=== PATIENT | male | born 1970 | race Caucasian/White ===

== ENCOUNTER → 2019-12-21 | Outpatient (CLI) | payer MEDICARE, MEDICAID, OTHER ==
[~2019-12-21] MED LIST: ACET500C4 PO; AMLO5TAB2 PO; ASPI-892; ATEN50TA PO; FURO80TA3; FURO80TA3 PO; HYDR1TAB PO; LOSA1TAB15; LRT10T PO; METH4TAB PO; POTA20TA15 PO
== END ==
LOC: CARD 10:08
PROVIDERS: ATTEND Internal Medicine Cardiovascular Disease
DX: R07.89 Other chest pain (principal); G47.33 Obstructive sleep apnea (adult) (pediatric); E66.9 Obesity, unspecified; E11.9 Type 2 diabetes mellitus without complications; M79.89 Other specified soft tissue disorders

== ENCOUNTER → 2019-12-29 | Outpatient (CLI) | payer MEDICARE, MEDICAID ==
[~2019-12-29] VITALS: Ht 187 cm; Wt 191.0 kg
[~2019-12-29] MED LIST changes: +CATHETER FLUSH 10 ML SYR IV PRN; +REGADENOSON 0.4 MG/5 ML SYR (LEXISCAN) IV ONE
--- NOTE | 2019-12-29 18:17 | STRESS TEST ---
DATE OF SERVICE: 12/29/2019 RESTING AND POST REGADENOSON TECHNETIUM-99M TETROFOSMIN SPECT CT IMAGING ORDERING PHYSICIAN: Dr. Goel. PRIMARY PHYSICIAN: Krystina Govea APRN. CLINICAL DIAGNOSIS: Chest discomfort, type 2 diabetes. Baseline images were carried out after injection of 10.63 mCi of technetium-99m Tetrofosmin. This was followed by 0.4 mg regadenoson and 30.8 mCi of technetium-99m Tetrofosmin for stress imaging. The electrocardiogram showed sinus rhythm at baseline. It did not change significantly with the regadenoson infusion. The patient tolerated the procedure well. Review of images at rest and following stress does not indicate any significant perfusion defects consistent with significant myocardial ischemia or infarction. Gated images show normal global left ventricular systolic function with normal regional wall motion. Left ventricular ejection fraction is calculated to be 70%. Left ventricular end diastolic volume is 69 mL. TID is absent (0.92). CONCLUSIONS: 1. No evidence of any significant myocardial ischemia or infarction on this study. 2. Normal regional wall motion. 3. Normal global left ventricular systolic function with a calculated ejection fraction of 70%. Job ID: [id number] DocumentID: [id number] Dictated Date: 12/29/2019 16:00:36 Siphoner Date: 12/29/2019 18:16:30 Dictated By: FANG GOEL MD, MA, FACP, FACC,
== END ==
LOC: CARD 11:05
PROVIDERS: ATTEND Internal Medicine Cardiovascular Disease
DX: R00.2 Palpitations (principal); E66.01 Morbid (severe) obesity due to excess calories; E11.9 Type 2 diabetes mellitus without complications
CPT/HCPCS: 78452; 93017

== ENCOUNTER 2023-05-15 05:49 | Outpatient (CLI) | payer MEDICARE, MEDICAID ==
[~2023-05-15] VITALS: Ht 185.4 cm; Wt 187.3 kg
[~2023-05-15 05:49] MED LIST changes: -CATHETER FLUSH 10 ML SYR IV PRN; -REGADENOSON 0.4 MG/5 ML SYR (LEXISCAN) IV ONE
[2023-05-15] MEDS ORDERED: PANT40TA52 PO (09:42)
[2023-05-15] MEDS ORDERED: EPLE25TA4 PO (09:42)
[2023-05-15] MEDS ORDERED: LISI40TA9 PO (09:42)
[2023-05-15] MEDS ORDERED: ALLO300T2 PO (09:42)
[2023-05-15] MEDS ORDERED: METO50TA7 PO (09:42)
[2023-05-15] MEDS ORDERED: SEMA1PEN3 SQ (09:42)
== END 2023-05-15 09:57 | disposition home or self-care (01) ==
LOC: PREOP 05:49
PROVIDERS: ATTEND Surgery
DX: Z01.818 Encounter for other preprocedural examination (principal)

== ENCOUNTER 2023-05-20 07:33 | Day surgery (SDC) | payer MEDICARE, MEDICAID ==
[~2023-05-20] VITALS: Ht 185 cm; Wt 187.3 kg
[~2023-05-20 07:33] MED LIST changes: +ALLO300T2 PO; +EPLE25TA4 PO; +LISI40TA9 PO; +METO50TA7 PO; +PANT40TA52 PO; +SEMA1PEN3 SQ
[2023-05-20] MEDS ORDERED: LACTATED RINGERS 1,000 ML IV STA (07:50)
[2023-05-20 08:12] VITALS: BP 116/69
--- NOTE | 2023-05-20 08:28 | Progress Note-Pre Operative ---
Pre-Operative Progress Note Date of Available H&P: May 07, 2023 Date H&P Reviewed: May 20, 2023 Time H&P Reviewed: 08:24 History & Physical: H&P Reviewed, Patient Examed, No changes noted Pre-Operative Diagnosis: Hx of polyps, diarrhea RONIT BEE DO May 20, 2023 08:28
--- NOTE | 2023-05-20 09:21 | Anesthesia-General Post-Op ---
MAC Patient Condition Mental Status/LOC: Same as Preop Cardiovascular: Satisfactory Nausea/Vomiting: Absent Respiratory: Satisfactory Pain: Controlled Complications: Absent Post Op Complications Complications None Follow Up Care/Instructions Patient Instructions None needed. Anesthesiology Discharge Order Discharge Order Patient is doing well, no complaints, stable vital signs, no apparent adverse anesthesia problems. No complications reported per nursing. OLYA HACKETT CRNA May 20, 2023 09:21
[2023-05-20 09:25] VITALS: BP 129/79
--- NOTE | 2023-05-20 09:25 | Progress Note-Post Operative ---
Post-Operative Progess Note Surgeon (s)/Outdoor Studies Professor (s) Surgeon RONIT BEE DO Outdoor Studies Professor: none Pre-Operative Diagnosis Hx of polyps, diarrhea Post-Operative Diagnosis Polyps Diverticula int hemorrhoids Procedure & Operative Findings Date of Procedure 05/20/23 Procedure Performed/Findings Colonoscopy with hot biopsy PROCEDURE NOTE: After informed consent was obtained, the patient was brought to the endoscopy suite, placed in bed in left lateral decubitus position. He was administered IV sedation by the SURGICAL INSTRUMENT MECHANIC who then monitored his vitals the entire time, heart rate, blood pressure and pulse ox and the scope was inserted, pushed all the way to about 160 cm and pushed to the cecum. Just outside the cecal cap I found a small polyp and removed it with hot biopsy. I had also seen a couple of small diverticula in the ascending colon. Once in the cecum, took a picture of appendiceal orifice and noted the ileocecal valve. Then slowly withdrew the scope insufflating to look circumferentially at the sarabia starting in the cecum, up the ascending colon to the hepatic flexure and then down the transverse colon. I found another flat polyp here and removed it with hot biopsy. Continued to the splenic flexure, into the descending colon down into the sigmoid and then into the rectal vault. I retroflexed the scope and took a picture of the internal hemorrhoids. The colon looked good no signs or reasons for him to be having diarrhea. The patient tolerated the procedure. He was recovered in endoscopy suite. Recommended for repeat colonoscopy in 5 years. Anesthesia Type IV sedation by SURGICAL INSTRUMENT MECHANIC Estimated Blood Loss Estimated blood loss (mL): scant Specimens/Packing Specimens Removed cecal polyp transverse colon polyp RONIT BEE DO May 20, 2023 09:25
--- NOTE | 2023-05-20 09:26 | Endoscopy Discharge Instruct ---
Endo Procedure/Findings Findings 1.: Polyp 2.: Diverticulosis 3.: Internal Hemorrhoids Discharge Instructions - Activity: You might feel a little sleepy until tomorrow. This is due to the medicine you received to relax you. Until tomorrow, you should: NOT drive a car, operate machinery or power tools. NOT drink any alcoholic beverages. NOT make any important decisions or sign importortant papers. Do not return to work until tomorrow, unless otherwise instructed. Resume previous activities tomorrow. Diet: Start by taking liquids. If you tolerate liquids, advance to solid food. 1.: Colonscopy in 5 years Notify Physician - If you experience excessive bleeding, unusual abdominal pain, fever, or chest pain, contact your doctor immediately. Follow-Up: Other Follow up in my office in one week RONIT BEE DO May 20, 2023 09:26
[2023-05-20 09:30] VITALS: BP 131/78
[2023-05-20 09:50] VITALS: BP 131/78
== END 2023-05-20 09:57 | disposition home or self-care (01) ==
LOC: ENDO 07:33
PROVIDERS: ATTEND Surgery
DX: D12.0 Benign neoplasm of cecum (principal); D12.3 Benign neoplasm of transverse colon; K57.90 Diverticulosis of intestine, part unspecified, without perforation or abscess without bleeding; K64.8 Other hemorrhoids; K52.9 Noninfective gastroenteritis and colitis, unspecified; E66.01 Morbid (severe) obesity due to excess calories; Z68.43 Body mass index [BMI] 50.0-59.9, adult
CPT/HCPCS: 88305